=== PATIENT | female | born 1985 | race Caucasian/White ===

== ENCOUNTER 2018-11-04 06:47 | Inpatient (IN) | payer MEDICAID ==
[~2018-11-04] VITALS: Ht 156.2 cm; Wt 129.6 kg
[~2018-11-04 06:47] MED LIST: PNV11TAB PO
[2018-11-04] MEDS ORDERED: LACTATED RINGER'S 1,000 ML IV ONE (08:00)
[2018-11-04] MEDS ORDERED: OXYTOCIN 30 UNITS/LR 500 ML IV PRN (08:00)
[2018-11-04] MEDS ORDERED: AZITHROMYCIN 500MG/NS (PMX) 250 ML IV SCH (08:00)
[2018-11-04] MEDS ORDERED: CEFAZOLIN 3 GM in DEXTROSE 5% 100 ML IV ONE (08:00)
[2018-11-04] MEDS ORDERED: METHYLERGONOVINE 0.2 MG INJ IM PRN (08:00)
[2018-11-04] MEDS ORDERED: MISOPROSTOL 200 MCG TAB PR PRN ×2 (08:00→10:00)
[2018-11-04] MEDS ORDERED: CARBOPROST 250 MCG INJ IM PRN (08:00)
[2018-11-04 08:14] VITALS: BP 121/60; PULSE 64; RESP 18
[2018-11-04] MEDS: LACTATED RINGER'S 1,000 ML IV SCH ×2 (09:19→23:41)
[2018-11-04] MEDS ORDERED: ONDANSETRON 4 MG INJ IV ONE (09:30)
[2018-11-04] MEDS ORDERED: CITRIC ACID/NA CITRATE 30 ML CUP PO ONE (09:30)
[2018-11-04] MEDS ORDERED: LACTATED RINGER'S 1,000 ML IV SCH (09:32)
[2018-11-04] MEDS ORDERED: OXYTOCIN 30 UNITS/LR 500 ML BAG IV ONE (09:41)
[2018-11-04] MEDS ORDERED: PHENYLephrine (100 MCG/ML) 10ML SYG ONE (09:41)
[2018-11-04] MEDS ORDERED: OXYTOCIN 10 UNIT INJ ONE (09:41)
[2018-11-04] MEDS ORDERED: morphine SULFATE/PF (10 MG/10 ML) INJ ONE (09:41)
[2018-11-04] MEDS ORDERED: DEXAMETHASONE 4 MG/ML 1 ML INJ ONE (09:53)
[2018-11-04] MEDS ORDERED: METOCLOPRAMIDE 10 MG INJ ONE (09:53)
[2018-11-04] MEDS ORDERED: KETOROLAC 30 MG INJ ONE (09:53)
[2018-11-04] MEDS ORDERED: NALBUPHINE HCL (10 MG/1 ML) INJ IV PRN (10:00)
[2018-11-04] MEDS ORDERED: HYDROCODONE/APAP (5/325) TAB PO PRN (10:00)
[2018-11-04] MEDS ORDERED: HYDROmorphONE 0.5 MG/0.5 ML SYG IV PRN ×2 (10:00)
[2018-11-04] MEDS ORDERED: ACETAMINOPHEN 500 MG TAB PO PRN (10:00)
[2018-11-04] MEDS ORDERED: ONDANSETRON 4 MG INJ IV PRN (10:00)
[2018-11-04] MEDS ORDERED: NALOXONE (0.4 MG/ML) INJ IV PRN (10:00)
[2018-11-04] MEDS ORDERED: morphine 2 MG INJ IV PRN ×2 (10:00)
[2018-11-04] MEDS ORDERED: DIPHENHYDRAMINE 50 MG INJ IV PRN (10:00)
[2018-11-04] MEDS ORDERED: LANOLIN HPA 1 PKT TOP PRN (10:00)
[2018-11-04] MEDS ORDERED: NA PHOSPHATE/BIPHOS 133 ML ENEMA PR PRN (10:00)
[2018-11-04] MEDS: OXYTOCIN 30 UNITS/LR 500 ML IV SCH ×2 (11:11→15:52)
[2018-11-04] MEDS ORDERED: IBUPROFEN 600 MG TAB PO SCH (12:00)
[2018-11-04 13:00] VITALS: BP 138/65; PULSE 68; RESP 18
[2018-11-04] MEDS: KETOROLAC 30 MG INJ IV PRN (18:09)
[2018-11-04 19:50] VITALS: BP 123/59; PULSE 65; RESP 19
[2018-11-04] MEDS: SENNA/DOCUSATE NA (8.6MG/50MG) TAB PO SCH (22:24)
[2018-11-05 00:35] VITALS: BP 119/67; PULSE 67; RESP 19
[2018-11-05] MEDS: LACTATED RINGER'S 1,000 ML IV SCH (04:07)
[2018-11-05] MEDS: KETOROLAC 30 MG INJ IV PRN (04:13)
[2018-11-05 04:19] VITALS: BP 114/58; PULSE 56; RESP 19
[2018-11-05 08:00] VITALS: BP 103/57; PULSE 61; RESP 18
[2018-11-05] MEDS: SENNA/DOCUSATE NA (8.6MG/50MG) TAB PO SCH ×2 (09:20→21:15)
[2018-11-05] MEDS: OXYCODONE/ACETAMINOPHEN (5/325) TAB PO PRN ×4 (09:27→23:08)
[2018-11-05 16:45] VITALS: BP 114/56; PULSE 81; RESP 18
[2018-11-05 20:00] VITALS: BP 108/57; PULSE 66; RESP 20
[2018-11-06 04:20] VITALS: BP 113/77; PULSE 71; RESP 20
[2018-11-06 08:38] VITALS: BP 113/69; PULSE 77; RESP 18
[2018-11-06] MEDS: SENNA/DOCUSATE NA (8.6MG/50MG) TAB PO SCH ×2 (09:50→21:02)
[2018-11-06] MEDS: OXYCODONE/ACETAMINOPHEN (5/325) TAB PO PRN ×3 (09:50→21:02)
[2018-11-06] MEDS: IBUPROFEN 600 MG TAB PO SCH ×2 (12:02→17:30)
[2018-11-06 16:08] VITALS: BP 113/54; PULSE 63; RESP 18
[2018-11-06 20:20] VITALS: BP 139/84; PULSE 70; RESP 18
[2018-11-07] MEDS: IBUPROFEN 600 MG TAB PO SCH ×3 (00:43→12:34)
[2018-11-07 04:00] VITALS: BP 134/75; PULSE 63; RESP 18
[2018-11-07 08:00] VITALS: BP 130/68; PULSE 59; RESP 16
[2018-11-07] MEDS ORDERED: DIPHTH/TET/ACEL PERTUSS (ADULT) 0.5 ML VIAL IM* ONE (09:00)
[2018-11-07] MEDS ORDERED: MEASLES,MUMPS,RUBELLA VACCINE INJ SC* ONE (09:00)
[2018-11-07] MEDS: OXYCODONE/ACETAMINOPHEN (5/325) TAB PO PRN (09:12)
[2018-11-07] MEDS: SENNA/DOCUSATE NA (8.6MG/50MG) TAB PO SCH (09:12)
== END 2018-11-07 14:15 | disposition home or self-care (01) | DRG 785 ==
LOC: L-D 07:22 → PP1 13:27
PROVIDERS: ADMIT Specialist; ATTEND Specialist
PROC: 0UT70ZZ Resection of Bilateral Fallopian Tubes, Open Approach (ICD-10-PCS; 2018-11-04)
PROC: 10907ZC Drainage of Amniotic Fluid, Therapeutic from Products of Conception, Via Natural or Artificial Opening (ICD-10-PCS; 2018-11-04)
PROC: 10D00Z1 Extraction of Products of Conception, Low, Open Approach (ICD-10-PCS; principal; 2018-11-04 09:00)
DX: O34.211 Maternal care for low transverse scar from previous cesarean delivery (principal); O32.1XX0 Maternal care for breech presentation, not applicable or unspecified; O99.213 Obesity complicating pregnancy, third trimester; O99.02 Anemia complicating childbirth; Z37.0 Single live birth; Z3A.39 39 weeks gestation of pregnancy
CPT/HCPCS: 85025; 85610; 85730; 86592; 86850; 86900; 86901; 87340; 88302; 88307; 99464; J0456; J0690; J1100; J1885; J2274; J2370; J2405; J2590; J2765; J7120